=== PATIENT | male | born 1955 | race Caucasian/White ===

== ENCOUNTER 2022-03-02 06:30 | Day surgery (SDC) | payer OTHER ==
[~2022-03-02] VITALS: Ht 182.9 cm; Wt 97.5 kg
[2022-03-02] MEDS ORDERED: BENZOCAINE 20% 50 MCG/SPRAY 57 GM TP ONE (06:31)
[2022-03-02] MEDS ORDERED: ALBUTEROL SULFATE 2.5 MG/0.5 ML NEB SOLUTION NEB ONE (06:31)
[2022-03-02] MEDS ORDERED: LIDOCAINE 2% 30 ML JELLY TP ONE (06:31)
[2022-03-02] MEDS ORDERED: LIDOCAINE 4% 50 ML SOLUTION TP ONE (06:31)
[2022-03-02 07:00] LABS: COVID AG,FIA SOURCE NASOPHARYNGEAL
[2022-03-02] MEDS ORDERED: SODIUM CHLORIDE 0.9% 1,000 ML IV ONE (07:00)
[2022-03-02] MEDS ORDERED: SODIUM CHLORIDE 0.9% 10 ML ONE (07:20)
[2022-03-02] MEDS ORDERED: FentaNYL CITRATE PF 100 MCG/2 ML VIAL ONE (07:47)
[2022-03-02] MEDS ORDERED: MIDAZOLAM HCL 5 MG/ML VIAL ONE (07:48)
[2022-03-02] MEDS ORDERED: GABA-1181 PO (07:54)
[2022-03-02] MEDS ORDERED: LISI30TA4 PO (07:54)
[2022-03-02] MEDS ORDERED: HYDR25TA PO (07:54)
[2022-03-02] MEDS ORDERED: AMLO5TAB66 PO (07:54)
[2022-03-02] MEDS ORDERED: BUPR-113 PO (07:56)
[2022-03-02] MEDS ORDERED: MONT-40 PO (07:56)
[2022-03-02] MEDS ORDERED: DOXY100C5 PO (07:56)
[2022-03-02] MEDS ORDERED: FAMO40TA7 PO (07:56)
[2022-03-02] MEDS ORDERED: MethylPREDNISolone SOD SUCC 125 MG/2 ML VIAL IVP ONE (09:15)
[2022-03-02] MEDS ORDERED: MethylPREDNISolone SOD SUCC 125 MG/2 ML VIAL ONE (09:59)
[2022-03-02] MEDS ORDERED: OXYGEN THERAPY IH SCH (20:00)
== END 2022-03-02 13:50 | disposition home or self-care (01) ==
LOC: SURGERY 06:30
PROVIDERS: ATTEND Internal Medicine Critical Care Medicine
DX: J38.4 Edema of larynx (principal); B37.0 Candidal stomatitis; F17.210 Nicotine dependence, cigarettes, uncomplicated; I10 Essential (primary) hypertension; Z87.01 Personal history of pneumonia (recurrent); Z87.11 Personal history of peptic ulcer disease; Z79.899 Other long term (current) drug therapy; Z98.890 Other specified postprocedural states
CPT/HCPCS: 31623; 31624; 71045; 87015; 87070; 87101; 87206; 87220; 87426; 88184; 88185; C9803; J2250; J2930; J3010; 88108; 88305; J7613; Z7610